=== PATIENT | male | born 1950 | race Caucasian/White ===

== ENCOUNTER 2017-04-14 09:03 | Day surgery (SDC) | payer MEDICARE, OTHER ==
[2017-04-14] MEDS ORDERED: FENTAnyl 50 MCG/ML VIAL (10:56)
[2017-04-14] MEDS ORDERED: MIDAZOLAM 1 MG/ML 2 ML INJ ×2 (10:56→10:57)
== END 2017-04-14 12:28 | disposition home or self-care (01) ==
LOC: GIL 09:03
DX: Z12.11 Encounter for screening for malignant neoplasm of colon (principal); K57.90 Diverticulosis of intestine, part unspecified, without perforation or abscess without bleeding; K64.9 Unspecified hemorrhoids
CPT/HCPCS: G0121